=== PATIENT | male | born 1935 | race Caucasian/White ===

== ENCOUNTER → 2021-03-07 | Outpatient (CLI) | payer MEDICARE, OTHER ==
[~2021-03-07] MED LIST: ASPIRIN 325MG325 MG PO; CRESTOR5 MG PO; FLORINEF 0.1 M0.1 MG PO; LISINOPRIL5 MG PO
== END ==
LOC: KOH-I 14:49
DX: R42 Dizziness and giddiness (principal); G45.8 Other transient cerebral ischemic attacks and related syndromes
CPT/HCPCS: 70450; 93880

== ENCOUNTER 2022-01-17 15:01 | Inpatient (IN) | payer MEDICARE, OTHER ==
[~2022-01-17] VITALS: Ht 172.7 cm; Wt 72.6 kg
[2022-01-17 17:07] LABS: HEMOGLOBIN 15.6 gm/dl (14.0-17.5); RED BLOOD COUNT 5.01 M/UL (4.20-5.50); WHITE BLOOD COUNT 6.3 K/UL (4.5-11.0)
[2022-01-17] MEDS ORDERED: LOPRESSOR 25 MG25 MG PO (23:41)
[2022-01-18] MEDS ORDERED: PRILOSEC OTC20 MG PO (11:48)
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
[2022-01-19 14:44] LABS: HEMOGLOBIN 15.8 gm/dl (14.0-17.5); RED BLOOD COUNT 5.14 M/UL (4.20-5.50); WHITE BLOOD COUNT 7.1 K/UL (4.5-11.0)
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
[2022-01-20 02:49] LABS: HEMOGLOBIN 15.6 gm/dl (14.0-17.5); RED BLOOD COUNT 5.13 M/UL (4.20-5.50); WHITE BLOOD COUNT 7.8 K/UL (4.5-11.0)
[2022-01-20] MEDS ORDERED: SEROQUEL50 MG PO (12:36)
[2022-01-20] MEDS ORDERED: ATORVASTATIN CA20 MG PO (12:36)
[2022-01-20] MEDS ORDERED: MECLIZINE HCL25 MG PO (12:36)
[2022-01-20] MEDS ORDERED: SIMVASTATIN20 MG PO (13:13)
[2022-01-20] MEDS ORDERED: PRAVASTATIN SOD20 MG PO (13:41)
--- NOTE | 2022-01-20 16:24 | NUR ---
REPORT CALLED [facility], AWAITING EMS FOR TRANSFER.
--- NOTE | 2022-01-20 21:53 | NUR ---
PT DISCHARGED TO [facility]. IV REMOVED, DISCHARGE PACKET SENT, REPORT WAS CALLED BY [facility]. V/S TAKEN AND WNL. PT LEFT THE FLOOR PER EMS IN STABLE CONDITION AT 2150.
== END 2022-01-20 21:58 | DRG 65 ==
LOC: ER1 15:01 → M/S 21:48 → CDU 21:48 → M/S 22:46
PROVIDERS: Emergency Medicine; ADMIT Internal Medicine
DX: I63.9 Cerebral infarction, unspecified (principal); E27.40 Unspecified adrenocortical insufficiency; E86.0 Dehydration; E78.5 Hyperlipidemia, unspecified; M79.10 Myalgia, unspecified site; I25.10 Atherosclerotic heart disease of native coronary artery without angina pectoris; Z95.1 Presence of aortocoronary bypass graft; Z95.0 Presence of cardiac pacemaker; I12.9 Hypertensive chronic kidney disease with stage 1 through stage 4 chronic kidney disease, or unspecified chronic kidney disease; Z82.49 Family history of ischemic heart disease and other diseases of the circulatory system; Z87.891 Personal history of nicotine dependence; N18.30 Chronic kidney disease, stage 3 unspecified; R29.810 Facial weakness; N28.9 Disorder of kidney and ureter, unspecified
CPT/HCPCS: ECHO; 36415; 70450; 70496; 70498; 71045; 74230; 80053; 81001; 82140; 82180; 82533; 82550; 82553; 82607; 82746; 83735; 83880; 84100; 84439; 84443; 84484; 85025; 85027; 85610; 85652; 85730; 86140; 92526; 92610; 92611-GN; 93005; 93306; 93880; 96372; 96374; 97116-GP-CQ; 97163; 97530; 99285; G0378; J1650; J2060; J3486; Q9967; U0002